=== PATIENT | male | born 2000 | race Caucasian/White ===

== ENCOUNTER 2024-10-16 14:08 | Emergency (ER) | payer BC ==
[~2024-10-16] VITALS: Ht 172.7 cm; Wt 61.2 kg
[2024-10-16] MEDS ORDERED: LISDEXAMFETAMIN30 MG PO (14:20)
[2024-10-16] MEDS ORDERED: EPINEPHrine/Lidocaine Hydroc 20 ML VIAL IM ONE (14:30)
[2024-10-16] MEDS ORDERED: CIPROFLOXACIN2.5 M1 OPH (14:53)
[2024-10-16] MEDS ORDERED: PERCOCET 5-3251 EACH PO (14:53)
[2024-10-16] MEDS ORDERED: CEPHALEXIN500 M1 PO (14:53)
== END 2024-10-16 15:01 | disposition home or self-care (01) ==
LOC: ED 14:08
DX: S01.112A Laceration without foreign body of left eyelid and periocular area, initial encounter (principal); S05.02XA Injury of conjunctiva and corneal abrasion without foreign body, left eye, initial encounter; W22.8XXA Striking against or struck by other objects, initial encounter; Y93.55 Activity, bike riding; Y92.410 Unspecified street and highway as the place of occurrence of the external cause; Y99.8 Other external cause status